=== PATIENT | female | born 1935 | race Caucasian/White ===

== ENCOUNTER 2018-06-24 22:27 | Observation (INO) ==
[2018-06-24 23:03] LABS: Baso # (Auto) 0.1 th/mm3 (0.0-0.2); Baso % (Auto) 0.7 % (0.0-2.0); Eos # (Auto) 0.4 th/mm3 (0.0-0.4); Eos % (Auto) 4.1 % (0.0-4.0); Hematocrit 39.2 % (35.0-46.0); Hemoglobin 13.5 gm/dL (11.6-15.3); Lymph # (Auto) 2.1 th/mm3 (1.0-4.8); Lymph % (Auto) 24.2 % (9.0-44.0); Mean Corpuscular HGB Conc 34.5 % (32.0-36.0); Mean Corpuscular Hemoglobin 32.6 pg (27.0-34.0); Mean Corpuscular Volume 94.4 fL (80.0-100.0); Mean Platelet Volume 7.4 fL (7.0-11.0); Mono # (Auto) 1.1 th/mm3 (0.0-0.9); Mono % (Auto) 12.5 % (0.0-8.0); Neut # (Auto) 5.1 th/mm3 (1.8-7.7); Neut % (Auto) 58.5 % (16.0-70.0); Platelet Count 252 th/mm3 (150-450); Red Blood Count 4.15 mil/mm3 (4.00-5.30); Red Cell Distribution Width 13.5 % (11.6-17.2); White Blood Count 8.8 th/mm3 (4.0-11.0)
--- NOTE | 2018-06-24 23:26 | XR ---
EXAM DATE: 06/24/2018 11:15 PM EST AGE/SEX: 83 years / Female INDICATIONS: Palpitations, shortness of breath. CLINICAL DATA: This is the patient's initial encounter. Patient reports that signs and symptoms have been present for 1 day and indicates a pain score of 0/10. MEDICAL/SURGICAL HISTORY: Hypertension. Carcinoma, lung. Myocardial infarction. COPD. Coron ana artery stent. COMPARISON: [facility], CHEST 1V SINGLE AP, 06/22/2018. [facility], XR CHEST PA AND LAT, 05/27/2016. [facility], FL UPPER GI SERIES W/ AIR AND KUB, 09/27/2017. . FINDINGS: Portable AP view of the chest demonstrates cardiac silhouette size at the upper limits for normal wit h calcification of the aorta. Air-containing retrocardiac mass represents a hiatal hernia. No pleural effusion or pneumothorax is identified. There is questionable mild airspace opacity in the left uppe r lobe. Bones and soft tissues have a stable appearance with old left rib fractures and right rib jennifer nges suggesting prior thoracotomy. CONCLUSION: 1. Possible mild airspace opacity in the left upper lobe. 2. Stable large hiatal hernia. Electronically signed by: Jordy Rodriguez MD Board Certified Radiologist 06/24/2018 11:25 PM EST
[2018-06-24 23:27] LABS: Alanine Aminotransferase 22 U/L (10-53); Albumin 3.2 g/dL (3.4-5.0); Alkaline Phosphatase 86 U/L (45-117); Anion Gap 4 meq/L (5-15); Aspartate Aminotransferase 19 U/L (15-37); Blood Urea Nitrogen 19 mg/dL (7-18); Calcium 8.1 mg/dL (8.5-10.1); Carbon Dioxide 25.6 meq/L (21.0-32.0); Chloride 111 meq/L (98-107); Glomerular Filtration Rate 84 mL/min (>89); Glucose,Random 108 mg/dL (74-106); Sodium 141 meq/L (136-145); Total Protein 7.2 g/dL (6.4-8.2)
--- NOTE | 2018-06-24 23:32 | ED ---
HPI General Chief Complaint: Arrhythmia / Palpitations Stated Complaint: Chest Pain Time Seen by Provider: 06/24/18 22:45 Source: patient and EMS Mode of arrival: EMS Limitations: no limitations History of Present Illness HPI narrative: 83-year-old female came to the emergency room with history of sudden onset of palpitation that started an hour prior to coming to the emergency room. Patient has history of atrial fibrillation. Patient was in the emergency room 2 days back with the same complaint and rapid A. fib. When EMS arrived patient had a heart rate in 140s. Patient was given 20 mg of IV Cardizem by EMS and upon arrival heart rate was down to the 90s. Patient says that she took an extra dose of her metoprolol as well before EMS came in. Her acoustic intelligence specialist is Dr. Brown. This is her third episode of palpitation and A. fib with RVR in past 1 month. Patient does not have a pacemaker and never had an ablation. She is on Eliquis for her A. fib. Patient says currently she feels tired and weak. She had some associated shortness of breath and chest heaviness which seems to have gone away currently. Blood pressure was within acceptable range. Patient does not require oxygen at home. Pressure was all over her chest. Related Data Home Medications Medication Instructions Recorded Confirmed albuterol sulfate [Ventolin HFA] 1 puff INHALATION Q6H PRN 06/22/18 06/24/18 amlodipine [Norvasc] 2.5 mg PO DAILY 06/22/18 06/24/18 amlodipine [Norvasc] 2.5 mg PO DAILY 06/22/18 06/24/18 apixaban [Eliquis] 5 mg PO BID 06/22/18 06/24/18 atorvastatin 40 mg PO DAILY 06/22/18 06/24/18 fluticasone-vilanterol [Breo 1 inh INHALATION DAILY 06/22/18 06/24/18 Ellipta] furosemide [Lasix] 20 mg PO DAILY 06/22/18 06/24/18 losartan 50 mg PO DAILY 06/22/18 06/24/18 metoprolol tartrate 25 mg PO BID 06/22/18 06/24/18 multivitamin 1 tab PO DAILY 06/22/18 06/24/18 pantoprazole 20 mg PO DAILY 06/22/18 06/24/18 sucralfate [Carafate] 1 g PO HS 06/22/18 06/24/18 Allergies Allergy/AdvReac Type Severity Reaction Status Date / Time diatrizoate meglumine Allergy Severe Hives Verified 06/22/18 16:16 doxycycline Allergy Severe Hives Verified 06/22/18 16:16 erythromycin base Allergy Severe Hives Verified 06/22/18 16:16 gadobenic acid Allergy Severe Hives Verified 06/22/18 16:16 gadodiamide Allergy Severe Hives Verified 06/22/18 16:16 gadoteridol Allergy Severe Hives Verified 06/22/18 16:16 iodixanol Allergy Severe Hives Verified 06/22/18 16:16 iohexol Allergy Severe Hives Verified 06/22/18 16:16 minocycline Allergy Severe Hives Verified 06/22/18 16:16 penicillin G Allergy Severe Hives Verified 06/22/18 16:16 tigecycline Allergy Severe Hives Verified 06/22/18 16:16 morphine Allergy Intermediate RESP Verified 06/22/18 16:16 FAILURE sulfamethoxazole AdvReac Mild NAUSEA Verified 06/22/18 16:16 VOMITING trimethoprim AdvReac Mild NAUSEA Verified 06/22/18 16:16 VOMITING Review of Systems ROS: all other systems reviewed are negative [facility] Medical History Medical History A-fib (Acute) Acid reflux disease (Acute) HBP (high blood pressure) (Acute) Hiatal hernia (Acute) History of hysterectomy (Acute) Surgical History Surgical History History of bladder repair surgery (Acute) History of heart artery stent (Acute) Social History Social History Substance History: No History of Abuse Second Hand Smoke Exposure: No Smoking Status: Former smoker Tobacco Type: Cigarettes How Often Do You Have a Drink Containing Alcohol: Never Recent Travel in [facility] within the Last 8 Weeks: No Recent Out of Country Travel within the Last 8 Weeks: No Immunization History Tetanus Immunization: Unsure Exam Narrative Exam Narrative: GENERAL: Awake, alert, elderly, moderate distress SKIN: Focused skin assessment warm/dry. HEAD: Atraumatic. Normocephalic. EYES: Pupils equal and round. No scleral icterus. No injection or drainage. ENT: No nasal bleeding or discharge. Mucous membranes pink and moist. NECK: Trachea midline. No JVD. CARDIOVASCULAR: Regular rate and rhythm. No murmur appreciated. RESPIRATORY: No accessory muscle use. Faint end expiratory wheeze GASTROINTESTINAL: Abdomen soft, non-tender, nondistended. Hepatic and splenic margins not palpable. MUSCULOSKELETAL: No obvious deformities. No clubbing. No cyanosis. Bilateral pedal edema NEUROLOGICAL: Awake and alert. No obvious cranial nerve deficits. Motor grossly within normal limits. Normal speech. PSYCHIATRIC: Appropriate mood and affect; insight and judgment normal. Course Initial Documented Vital Signs Temperature 98.3 F 06/24/18 22:35 Pulse Rate 75 06/24/18 22:35 Respiratory Rate 24 06/24/18 22:35 Blood Pressure 126/61 06/24/18 22:35 Pulse Oximetry 94 L 06/24/18 22:35 Last Documented Vital Signs Temperature 98.3 F 06/24/18 22:35 Pulse Rate 72 06/24/18 22:45 Respiratory Rate 24 06/24/18 22:35 Blood Pressure 126/61 06/24/18 22:35 Pulse Oximetry 97 06/24/18 22:45 Medical Decision Making MDM Narrative Medical decision making narrative: 11:32 PM blood test results are back and within acceptable limits. Patient is getting IV Lasix. I put a call out for Dr. Brown and waiting to discuss with him. I am little concerned that this is second time within 2 days of patient coming back for the same symptoms. I would prefer to admit her unless Dr. Brown recommends discharge and a close follow-up in his office. Medical Screen Exam Complete: Yes Emergency Medical Condition: Yes Lab Data Result diagrams: 06/24/18 22:56 06/24/18 22:56 Lab Results 06/24/18 06/24/18 06/24/18 Range/Units 22:56 22:56 22:56 WBC 8.8 (4.0-11.0) th/mm3 RBC 4.15 (4.00-5.30) mil/mm3 Hgb 13.5 (11.6-15.3) gm/dL Hct 39.2 (35.0-46.0) % MCV 94.4 (80.0-100.0) fL MCH 32.6 (27.0-34.0) pg MCHC 34.5 (32.0-36.0) % RDW 13.5 (11.6-17.2) % Plt Count 252 (150-450) th/mm3 MPV 7.4 (7.0-11.0) fL Neut % (Auto) 58.5 (16.0-70.0) % Lymph % (Auto) 24.2 (9.0-44.0) % Levy % (Auto) 12.5 H (0.0-8.0) % Eos % (Auto) 4.1 H (0.0-4.0) % Baso % (Auto) 0.7 (0.0-2.0) % Neut # (Auto) 5.1 (1.8-7.7) th/mm3 Lymph # (Auto) 2.1 (1.0-4.8) th/mm3 Levy # (Auto) 1.1 H (0.0-0.9) th/mm3 Eos # (Auto) 0.4 (0.0-0.4) th/mm3 Baso # (Auto) 0.1 (0.0-0.2) th/mm3 WBC Differential . Differential Comment Auto diff final Sodium 141 (136-145) meq/L Potassium 4.0 (3.5-5.1) meq/L Chloride 111 H (98-107) meq/L Carbon Dioxide 25.6 (21.0-32.0) meq/L Anion Gap 4 L (5-15) meq/L BUN 19 H (7-18) mg/dL Creatinine 0.67 (0.50-1.00) mg/dL Estimated GFR 84 L (>89) mL/min Random Glucose 108 H (74-106) mg/dL Calcium 8.1 L (8.5-10.1) mg/dL Total Bilirubin 0.4 (0.2-1.0) mg/dL AST 19 (15-37) U/L ALT 22 (10-53) U/L Alkaline Phosphatase 86 (45-117) U/L Troponin I Less than 0.02 L (0.02-0.05) ng/mL B-Natriuretic Peptide 196 H (0-100) pg/mL Total Protein 7.2 D (6.4-8.2) g/dL Albumin 3.2 L (3.4-5.0) g/dL Imaging Data Radiologist's impression: Chest X-Ray 06/24/18 22:45 CONCLUSION: 1. Possible mild airspace opacity in the left upper lobe. 2. Stable large hiatal hernia. ECG Data Attestation: I personally reviewed and interpreted this ECG as follows: Interpretation: Twelve-lead EKG was reviewed by me. Atrial fibrillation, left axis deviation, poor R wave progression. Heart rate of 87 bpm. Discharge Plan Discharge Disposition Patient Disposition: ED Admit(ED Internal Use Only) Physicians Team ED Provider: Stanley Sal Primary Care Provider: Kodi Hogan Rxs /Orders / Referrals /Forms Prescriptions: No Action multivitamin Tablet 1 tab PO DAILY RF: 0 losartan 50 mg Tablet 50 mg PO DAILY RF: 0 atorvastatin 40 mg Tablet 40 mg PO DAILY RF: 0 sucralfate [Carafate] 1 gram Tablet 1 g PO HS RF: 0 amlodipine [Norvasc] 2.5 mg Tablet 2.5 mg PO DAILY RF: 0 amlodipine [Norvasc] 2.5 mg Tablet 2.5 mg PO DAILY RF: 0 pantoprazole 20 mg Tablet,Delayed Release (Dr/Ec) 20 mg PO DAILY RF: 0 furosemide [Lasix] 20 mg Tablet 20 mg PO DAILY RF: 0 albuterol sulfate [Ventolin HFA] 90 mcg/actuation Hfa Aerosol Inhaler 1 puff INHALATION Q6H PRN (Reason: Shortness Of Breath) RF: 0 metoprolol tartrate 25 mg Tablet 25 mg PO BID RF: 0 apixaban [Eliquis] 5 mg Tablet 5 mg PO BID RF: 0 fluticasone-vilanterol [Breo Ellipta] 100-25 mcg/dose Blister With Device 1 inh INHALATION DAILY RF: 0 Status ED Status: With Doctor
[2018-06-25] MEDS ORDERED: Bisacodyl 10 MG Supp RECTAL PRN (02:50)
[2018-06-25] MEDS ORDERED: Acetaminophen 325 MG Tablet PO PRN (02:50)
--- NOTE | 2018-06-25 08:36 | P.HPIM ---
History of Present Illness Primary Care Physician: Kodi Hogan MD Chief Complaint: Palpitations History of Present Illness: Ms. Christensen is a pleasant 83 y/o WF with A. fib/RVR, CAD, CHF, COPD, GERD, HTN, and hx of lung cancer s/p right lobectomy in 2006. Pt presented to the ED at [facility] on 06/24/18 with palpitations. She reports that over the last 7-10 days she has been having increased frequency of episodes of palpitations and feeling like her heart was "pounding out of her chest." She was seen in the ED on with similar complaints and was given 10 mg of Cardizem IV x1 and HR improved into the 70's and stabilized and she was discharged home. Yesterday she felt the palpitations and heart pounding again in the evening and this prompted to he push her Medical Alert to call EMS. According to the ED documentation when EMS arrived the patient had a heart rate in 140s. Patient was given 20 mg of IV Cardizem by EMS and upon arrival to the ED her heart rate was down to the 90s. She was also give a dose of IV Lasix in the ED. Pt states that she doesn't normally take Lasix every day, she only uses it as needed at home. On telemetry pt has periodically been in A. fib RVR and appears this is mostly with activity or attempted ambulation with getting up to the bedside commode and then the HR improves back to the 80's this morning. Pt states that she is chronically SOB with activity and over the last 7-10 days she has felt more SOB but denies any increase in baseline LE edema. She denies any chest pain , dizziness, weakness, abd pain, nausea/vomiting. Past Medical Hx: A. fib/RVR CAD CHF, reported hx of diastolic dysfunction. COPD GERD HTN Hx of lung cancer Hx of PE in 2002 Chronic lymphedema Rheumatic mitral stenosis 2D echo (09/05/2016) - Estimated EF 55-60% - Mild mitral regurg. Mild mitral stenosis - Moderate tricuspid regurg - RVSP is 45mmHg Past Surgical Hx: PTCA in 2004 Right lobectomy Cataract surgery Appendectomy Hysterectomy Family Hx: Noncontributory Social Hx: Denies any alcohol, tobacco or illicit drug use Diagnosis (1) Atrial fibrillation with RVR: (2) HTN (hypertension): (3) CAD (coronary artery disease): (4) COPD (chronic obstructive pulmonary disease): Medications and Allergies Allergies Allergy/AdvReac Type Severity Reaction Status Date / Time diatrizoate meglumine Allergy Severe Hives Verified 06/22/18 16:16 doxycycline Allergy Severe Hives Verified 06/22/18 16:16 erythromycin base Allergy Severe Hives Verified 06/22/18 16:16 gadobenic acid Allergy Severe Hives Verified 06/22/18 16:16 gadodiamide Allergy Severe Hives Verified 06/22/18 16:16 gadoteridol Allergy Severe Hives Verified 06/22/18 16:16 iodixanol Allergy Severe Hives Verified 06/22/18 16:16 iohexol Allergy Severe Hives Verified 06/22/18 16:16 minocycline Allergy Severe Hives Verified 06/22/18 16:16 penicillin G Allergy Severe Hives Verified 06/22/18 16:16 tigecycline Allergy Severe Hives Verified 06/22/18 16:16 morphine Allergy Intermediate RESP Verified 06/22/18 16:16 FAILURE sulfamethoxazole AdvReac Mild NAUSEA Verified 06/22/18 16:16 VOMITING trimethoprim AdvReac Mild NAUSEA Verified 06/22/18 16:16 VOMITING Home Medications Medication Instructions Recorded Confirmed Type albuterol sulfate [Ventolin HFA] 1 puff INHALATION Q6H PRN 06/22/18 06/24/18 History apixaban [Eliquis] 5 mg PO BID 06/22/18 06/24/18 History atorvastatin 40 mg PO DAILY 06/22/18 06/24/18 History fluticasone-vilanterol [Breo 1 inh INHALATION DAILY 06/22/18 06/24/18 History Ellipta] multivitamin 1 tab PO DAILY 06/22/18 06/24/18 History pantoprazole 20 mg PO DAILY 06/22/18 06/24/18 History sucralfate [Carafate] 1 g PO HS 06/22/18 06/24/18 History Active Medications: Active Medications Acetaminophen (Tylenol) 650 mg PO Q4H PRN PRN Reason: Temp > 100.4 Al Hydroxide/Mg Hydroxide (Milk Of Magnesia Liq) 30 ml PO Q12H PRN PRN Reason: Mild Constipation Albuterol (Ventolin Hfa Inh) 1 puff INH Q6H PRN PRN Reason: Shortness Of Breath Amlodipine Besylate (Norvasc) 2.5 mg PO DAILY [facility] Apixaban (Eliquis) 5 mg PO BID [facility] Atorvastatin Calcium (Lipitor) 40 mg PO DAILY JAS Bisacodyl (Dulcolax Supp) 10 mg RECTAL DAILY PRN PRN Reason: SEVERE CONSITIPATION Fluticasone/Vilanterol (Breo Ellipta 100/25 Mcg Inh) 1 puff INH DAILY [facility] Furosemide (Lasix) 20 mg PO DAILY [facility] Lactulose (Lactulose Liq) 30 ml PO DAILY PRN PRN Reason: SEVERE CONSITIPATION Losartan Potassium (Cozaar) 50 mg PO DAILY [facility] Metoprolol Tartrate (Lopressor) 50 mg PO BID [facility] Multivitamins (Theragran) 1 tab PO DAILY [facility] Ondansetron HCl (Zofran Inj) 4 mg IV.PUSH Q6H PRN PRN Reason: NAUSEA OR VOMITING Pantoprazole Sodium (Protonix) 20 mg PO DAILY [facility] Sennosides (Senokot) 17.2 mg PO Q12H PRN PRN Reason: Moderate Constipation Sodium Chloride (Ns Flush) 2 ml IV.FLUSH BID [facility] Sodium Chloride (Ns Flush) 2 ml IV.FLUSH PRN PRN PRN Reason: FLUSH AFTER USING IV ACCESS Sucralfate (Carafate) 1 gm PO HS [facility] Physical Exam Vital signs: Last Vital Signs Temp 97.5 F L 06/25/18 08:00 Pulse 105 H 06/25/18 08:00 Resp 18 06/25/18 08:00 BP 115/75 06/25/18 08:00 Pulse Ox 99 06/25/18 08:00 Narrative: GENERAL: NAD, AAOx3 SKIN: Warm and dry. HEENT: Atraumatic. Normocephalic. Pupils equal and round. No scleral icterus. No injection or drainage. No nasal bleeding or discharge. Mucous membranes pink and moist. NECK: Trachea midline. No JVD. CARDIO: Irregularly irregular, rate controlled RESP: Clear to auscultation bilaterally. ABD: +BS, soft, non-tender, nondistended. EXT: Bilateral LE/pedal edema. No obvious deformities. NEURO: Awake and alert. No obvious cranial nerve deficits. Motor grossly within normal limits. Five out of 5 muscle strength in the arms and legs. Normal speech. PSYCH: Appropriate mood and affect; insight and judgment normal. Results Labs CBC & Chem 7: 06/26/18 07:17 06/26/18 07:17 Imaging Chest X-Ray 06/24/18 22:45 CONCLUSION: 1. Possible mild airspace opacity in the left upper lobe. 2. Stable large hiatal hernia. Caprini VTE Risk Assessment Caprini VTE Risk Assessment: Moderate/High Risk (score >= 2) Caprini Risk Assessment Model: Point Value = 1 Point Value = 2 Point Value = 3 Point Value = 5 Age 41-60 Minor surgery BMI > 25 kg/m2 Swollen legs Varicose veins or History of unexplained or recurrent spontaneous Oral contraceptives or hormone replacement Sepsis (< 1 month) Serious lung disease, including pneumonia (< 1 month) Abnormal pulmonary function Acute myocardial infarction Congestive heart failure (< 1 month) History of inflammatory bowel disease Medical patient at bed rest Age 61-74 Arthroscopic surgery Major open surgery (> 45 min) Laparoscopic surgery (> 45 min) Malignancy Confined to bed (> 72 hours) Immobilizing plaster cast Central venous access Age >= 75 History of VTE Family history of VTE Factor V Leiden Prothrombin [id number] Lupus anticoagulant Anticardiolipin antibodies Elevated serum homocysteine Heparin-induced thrombocytopenia Other congenital or acquired thrombophilia Stroke (< 1 month) Elective arthroplasty Hip, pelvis, or leg fracture Acute spinal cord injury (< 1 month) Prophylaxis Regimen: Total Risk Factor Score Risk Level Prophylaxis Regimen 0-1 Low Early ambulation 2 Moderate Order ONE of the following: *Sequential Compression Device (SCD) *Heparin 5000 units SQ BID 3-4 Higher Order ONE of the following medications: *Heparin 5000 units SQ TID *Enoxaparin/Lovenox 40 mg SQ daily (WT < 150 kg, CrCl > 30 mL/min) *Enoxaparin/Lovenox 30 mg SQ daily (WT < 150 kg, CrCl > 10-29 mL/min) *Enoxaparin/Lovenox 30 mg SQ BID (WT < 150 kg, CrCl > 30 mL/min) AND/OR *Sequential Compression Device (SCD) 5 or more Highest Order ONE of the following medications: *Heparin 5000 units SQ TID (Preferred with Epidurals) *Enoxaparin/Lovenox 40 mg SQ daily (WT < 150 kg, CrCl > 30 mL/min) *Enoxaparin/Lovenox 30 mg SQ daily (WT < 150 kg, CrCl > 10-29 mL/min) *Enoxaparin/Lovenox 30 mg SQ BID (WT < 150 kg, CrCl > 30 mL/min) AND *Sequential Compression Device (SCD) Assessment and Plan Assessment (1) Atrial fibrillation with RVR: Code(s): I48.91 - Unspecified atrial fibrillation Status: Acute (2) HTN (hypertension): Code(s): I10 - Essential (primary) hypertension Status: Chronic (3) CAD (coronary artery disease): Code(s): I25.10 - Atherosclerotic heart disease of [place] coronary artery without angina pectoris Status: Chronic (4) COPD (chronic obstructive pulmonary disease): Code(s): J44.9 - Chronic obstructive pulmonary disease, unspecified Status: Chronic Plan A. fib RVR - Pt is an 83 y/o WF with A. fib/RVR, CAD, CHF, COPD, GERD, HTN, and hx of lung cancer s/p right lobectomy in 2006. - Pt presented to the ED at [facility] on 06/24/18 with palpitations. She reports that over the last 7-10 days she has been having increased frequency of episodes of palpitations and feeling like her heart was "pounding out of her chest." She was seen in the ED on 06/22/18 with similar complaints and was given 10 mg of Cardizem IV x1 and HR improved into the 70's and stabilized and she was discharged home. Yesterday she felt the palpitations and heart pounding again in the evening and this prompted to he push her Medical Alert to call EMS. According to the ED documentation when EMS arrived the patient had a heart rate in 140s. - Patient was given 20 mg of IV Cardizem by EMS and upon arrival to the ED her heart rate was down to the 90s. She was also give a dose of IV Lasix in the ED. - Pt has continued to have some intermittent RVR on telemetry with activity, getting up to bedside commode, with some associated SOB. - Her Metoprolol is increased to 50mg BID - BP has been low normal so we will hold her Norvasc and put parameters on her Losartan. - Pt does not appear to have any adventitious lung sounds on examination this morning so we will hold her Lasix (she does not normally take Lasix daily) - Monitor HR on telemetry and BP increased dose of Metoprolol - Pt follows with Dr. Brown as an outpt - Check 2D echo - Supportive care - Cont. Eliquis HTN - Metoprolol is increased to 50mg BID - BP has been low normal so we will hold her Norvasc and put parameters on her Losartan. - Monitor COPD - Cont. home meds - Dutrinh PRN Attending Attestation Patient examined. Assessment and plan formulated with Mary Deleon PA-C. I agree with the above. pt with afib/rvr. progressive sob which might be related to uncontrolled afib. hx lung ca and right upper lobectomy. f/u echo, pft bedside, ct chest noncontrast.
[2018-06-25] MEDS ORDERED: amLODIPine 5 MG Tablet PO SCH ×2 (09:00→21:00)
[2018-06-25] MEDS ORDERED: Furosemide 20 MG Tablet PO SCH (09:00)
[2018-06-25] MEDS: Pantoprazole Sodium 20 MG DR Tablet PO SCH (09:16)
[2018-06-25] MEDS: Metoprolol Tartrate 50 MG Tablet PO SCH ×2 (09:16→20:27)
--- NOTE | 2018-06-25 11:31 | ECG ---
Date Performed: 06/24/2018 Time Performed: 22:39:49 PTAGE: 83 years EKG: ATRIAL FIBRILLATION POSSIBLE ANTERIOR MYOCARDIAL INFARCTION ABNORMAL RHYTHM ECG Since the PREVIOUS TRACING , no significant change noted PREVIOUS TRACIN06/22/2018 16.18 DOCTOR: Brian Honeycutt Interpretating Date/Time 06/25/2018 11:31:01
[2018-06-25 13:03] LABS: Calcium 8.5 mg/dL (8.5-10.1); Potassium 3.7 meq/L (3.5-5.1)
--- NOTE | 2018-06-25 16:56 | CT ---
EXAM DATE: 06/25/2018 4:32 PM EST AGE/SEX: 83 years / Female INDICATIONS: Short of breath CLINICAL DATA: This is the patient's initial encounter. Patient reports that signs and symptoms have been present for 3 days and indicates a pain score of 3/10. MEDICAL/SURGICAL HISTORY: Hypertension. Atrial Fibrillation, Hiatal Hernia Hysterectomy. Heart Art coy Stent, Bladder Repair RADIATION DOSE: 10.37 CTDI (mGy) COMPARISON: No prior exams available for comparison. TECHNIQUE: Multiple contiguous axial images were obtained through the chest without contrast. Image s were obtained in suspended respiration using multiple row detector helical technique. Using automa marcelino exposure control and adjustment of the mA and/or kV according to patient size, radiation dose was kept as low as reasonably achievable to obtain optimal diagnostic quality images. DICOM format imag e data is available electronically for review and comparison. FINDINGS: Lungs: The lungs are symmetrically aerated. There is a 2.4 x 2.9 cm soft tissue density seen just po sterior and abutting up against the distal aortic arch/proximal descending thoracic aorta in the medi al aspect of the left upper lung lungs are otherwise clear.. Mediastinum: There is good visualization of the great vessels of the middle mediastinum. No evidenc e of mediastinal or hilar adenopathy/mass. Atherosclerotic calcification of the coronary arteries. He art size is prominent. Pleurae: No evidence of focal thickening or pleural effusion. Axillae: Unremarkable. Bony Structures: Unremarkable. Miscellaneous: The examination was extended to include the upper abdomen, and both adrenal glands ar e normal in size and configuration. There appears to be a very large hiatal hernia with an associated organoaxial gastric volvulus. Punctate, nonobstructing calculus in the midpole collecting system of the left kidney. CONCLUSION: 1. There is a 2.4 x 2.9 cm soft tissue density posterior and abutting up against the distal aortic a rch/proximal descending thoracic aorta. On the sagittal reconstructions, I do believe that there is a tissue plane between the aorta and the nodule and therefore, this probably does not represent a sacc ular aneurysm. Both neoplastic and infectious processes should be considered. Conservatively, I woul d recommend a repeat CT scan of the chest in 3 months preferably with contrast to ensure stability/re solution. Alternatively, outpatient PET imaging could be performed to evaluate metabolic activity of this lesion. 2. Lungs are otherwise clear. No acute infiltrate. 3. Atherosclerotic calcification of the coronary arteries. 4. Very large hiatal hernia with most of the stomach in the lower chest. This appears to be associat ed with organoaxial gastric volvulus. 5. Nonobstructing, punctate 2 to 3 mm renal stone in the left mid pole collecting system. Electronically signed by: Hector Todd MD Board Certified Radiologist 06/25/2018 4:55 PM EST
[2018-06-25] MEDS: Acetaminophen 325 MG Tablet PO PRN (20:28)
[2018-06-25] MEDS: Sucralfate 1 GM Tablet PO SCH (21:51)
[2018-06-26] MEDS: Acetaminophen 325 MG Tablet PO PRN (06:18)
--- NOTE | 2018-06-26 08:07 | P.PNIM ---
Subjective Interval history: Pt feeling well this morning. She slept well last night HR in the 50-60's this morning on telemetry HR did go as low as 43 overnight. Physical Exam Vital signs: Last Vital Signs Temp 98.2 F 06/26/18 04:00 Pulse 59 L 06/26/18 04:00 Resp 18 06/26/18 04:00 BP 129/61 06/26/18 04:00 Pulse Ox 95 06/26/18 04:00 Narrative: GENERAL: NAD, AAOx3 CARDIO: Regularly,bradycardic RESP: CTA bilaterally. ABD: +BS, soft, non-tender, nondistended. EXT: Bilateral LE/pedal edema. No obvious deformities. Results Labs CBC & Chem 7: 06/26/18 07:17 06/26/18 07:17 Imaging Chest X-Ray 06/24/18 22:45 CONCLUSION: 1. Possible mild airspace opacity in the left upper lobe. 2. Stable large hiatal hernia. Chest CT 06/25/18 00:00 CONCLUSION: 1. There is a 2.4 x 2.9 cm soft tissue density posterior and abutting up against the distal aortic arch/proximal descending thoracic aorta. On the sagittal reconstructions, I do believe that there is a tissue plane between the aorta and the nodule and therefore, this probably does not represent a saccular aneurysm. Both neoplastic and infectious processes should be considered. Conservatively, I would recommend a repeat CT scan of the chest in 3 months preferably with contrast to ensure stability/resolution. Alternatively, outpatient PET imaging could be performed to evaluate metabolic activity of this lesion. 2. Lungs are otherwise clear. No acute infiltrate. 3. Atherosclerotic calcification of the coronary arteries. 4. Very large hiatal hernia with most of the stomach in the lower chest. 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 5. Nonobstructing, punctate 2 to 3 mm renal stone in the left mid pole collecting system. Assessment and Plan Assessment (1) Atrial fibrillation with RVR: Code(s): I48.91 - Unspecified atrial fibrillation Status: Acute (2) HTN (hypertension): Code(s): I10 - Essential (primary) hypertension Status: Chronic (3) CAD (coronary artery disease): Code(s): I25.10 - Atherosclerotic heart disease of [place] coronary artery without angina pectoris Status: Chronic (4) COPD (chronic obstructive pulmonary disease): Code(s): J44.9 - Chronic obstructive pulmonary disease, unspecified Status: Chronic Plan A. fib RVR - Pt is an 83 y/o WF with A. fib/RVR, CAD, CHF, COPD, GERD, HTN, and hx of lung cancer s/p right lobectomy in 2006. - Pt presented to the ED at [facility] on 06/24/18 with palpitations. She reports that over the last 7-10 days she has been having increased frequency of episodes of palpitations and feeling like her heart was "pounding out of her chest." She was seen in the ED on 06/22/18 with similar complaints and was given 10 mg of Cardizem IV x1 and HR improved into the 70's and stabilized and she was discharged home. Yesterday she felt the palpitations and heart pounding again in the evening and this prompted to he push her Medical Alert to call EMS. According to the ED documentation when EMS arrived the patient had a heart rate in 140s. - Patient was given 20 mg of IV Cardizem by EMS and upon arrival to the ED her heart rate was down to the 90s. She was also give a dose of IV Lasix in the ED. - Pt was having some intermittent RVR on telemetry with activity on 06/25/18, getting up to bedside commode, with some associated SOB. - Her Metoprolol is increased to 50mg BID - HR is better controlled on higher dose of Metoprolol but HR was going low overnight into the 40's. Change evening dose back to 25mg - BP has been low normal so we will hold her Norvasc and Losartan. - Pt does not appear to have any adventitious lung sounds on examination this morning so we will hold her Lasix (she does not normally take Lasix daily) - Pt follows with Dr. Brown as an outpt - Check 2D echo is ordered - Supportive care - Cont. Eliquis HTN - Metoprolol is increased to 50mg BID - BP has been low normal so we will hold her Norvasc and put parameters on her Losartan. - Monitor COPD Hx of lung cancer SOB, chronic but worsening more recently - Cont. home meds - Duonebs PRN - Bedside PFTs ordered - Chest CT (06/25/17) --> 1. There is a 2.4 x 2.9 cm soft tissue density posterior and abutting up against the distal aortic arch/proximal descending thoracic aorta. On the sagittal reconstructions, I do believe that there is a tissue plane between the aorta and the nodule and therefore, this probably does not represent a saccular aneurysm. Both neoplastic and infectious processes should be considered. Conservatively, I would recommend a repeat CT scan of the chest in 3 months preferably with contrast to ensure stability/resolution. Alternatively, outpatient PET imaging could be performed to evaluate metabolic activity of this lesion. 2. Lungs are otherwise clear. No acute infiltrate. 3. Atherosclerotic calcification of the coronary arteries. 4. Very large hiatal hernia with most of the stomach in the lower chest. 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 5. Nonobstructing, punctate 2 to 3 mm renal stone in the left mid pole collecting system. - Pt will need to followup with her PCP outpt for ordering a PET scan given her hx of lung cancer - She should followup with her Fuselage Framer, Dr. Purcell as well.
[2018-06-26 08:46] LABS: Baso # (Auto) 0.1 th/mm3 (0.0-0.2); Baso % (Auto) 0.8 % (0.0-2.0); Eos # (Auto) 0.3 th/mm3 (0.0-0.4); Eos % (Auto) 3.8 % (0.0-4.0); Hematocrit 38.5 % (35.0-46.0); Hemoglobin 13.3 gm/dL (11.6-15.3); Lymph # (Auto) 2.2 th/mm3 (1.0-4.8); Lymph % (Auto) 26.9 % (9.0-44.0); Mean Corpuscular HGB Conc 34.6 % (32.0-36.0); Mean Corpuscular Volume 95.5 fL (80.0-100.0); Mean Platelet Volume 7.5 fL (7.0-11.0); Mono % (Auto) 12.1 % (0.0-8.0); Neut # (Auto) 4.6 th/mm3 (1.8-7.7); Neut % (Auto) 56.4 % (16.0-70.0); Platelet Count 222 th/mm3 (150-450); Red Blood Count 4.03 mil/mm3 (4.00-5.30); Red Cell Distribution Width 13.8 % (11.6-17.2); White Blood Count 8.1 th/mm3 (4.0-11.0)
[2018-06-26] MEDS: Pantoprazole Sodium 20 MG DR Tablet PO SCH (08:56)
[2018-06-26 09:06] LABS: Calcium 8.8 mg/dL (8.5-10.1); Carbon Dioxide 27.7 meq/L (21.0-32.0); Potassium 3.8 meq/L (3.5-5.1)
[2018-06-26] MEDS: Metoprolol Tartrate 50 MG Tablet PO SCH ×2 (10:31→11:02)
--- NOTE | 2018-06-26 13:15 | ECHRPT ---
Indication: ATRIAL FIB/FLUTTER CONCLUSIONS Normal left ventricular size. Wall thickness is measured at the upper limits of normal. The left ventricular systolic function is normal with an estimated ejection fraction of 55%. Moderate thickening of the mitral valve leaflets. [id number] mitral valve regurgitation. Mitral annular calcification is present. The estimated pulmonary arterial pressure is 14 mmHg. BP: / HR: Rhythm: MEASUREMENTS (Male / Female) Normal Values Technical Quality: 2D ECHO LV Diastolic Diameter PLAX 4.0 cm 4.2 - 5.9 / 3.9 - 5.3 cm LV Systolic Diameter PLAX 3.1 cm IVS Diastolic Thickness 1.1 cm 0.6 - 1.0 / 0.6 - 0.9 cm LVPW Diastolic Thickness 1.0 cm 0.6 - 1.0 / 0.6 - 0.9 cm LV Relative Wall Thickness 0.5 RV Internal Dim ED PLAX 2.4 cm LVOT Diameter 1.8 cm Aortic Root Diameter 2.5 cm M-MODE AV Cusp Separation MM 1.6 cm DOPPLER AV Peak Velocity 151.0 cm/s AV Peak Gradient 9.1 mmHg LVOT Peak Velocity 84.9 cm/s LVOT Peak Gradient 2.9 mmHg AV Area Cont Eq pk 1.4 cm MV Peak Velocity 160.0 cm/s MV Peak Gradient 10.2 mmHg MV Mean Velocity 86.1 cm/s MV Mean Gradient 3.0 mmHg Mitral E Point Velocity 137.0 cm/s Mitral A Point Velocity 132.0 cm/s Mitral E to A Ratio 1.0 LV E' Lateral Velocity 6.8 cm/s Mitral E to LV E' Lateral Ratio 20.1 LV E' Septal Velocity 6.8 cm/s Mitral E to LV E' Septal Ratio 20.1 TR Peak Velocity 95.0 cm/s TR Peak Gradient 3.6 mmHg Right Atrial Pressure 10.0 mmHg Pulmonary Artery Systolic Pressu 13.6 mmHg Right Ventricular Systolic Press 13.6 mmHg PV Peak Velocity 72.7 cm/s PV Peak Gradient 2.1 mmHg FINDINGS LEFT VENTRICLE Normal left ventricular size. Wall thickness is measured at the upper limits of normal. The left ventricular systolic function is normal with an estimated ejection fraction of 55%. RIGHT VENTRICLE Normal right ventricular size and systolic function. LEFT ATRIUM The left atrial size is normal. RIGHT ATRIUM The right atrial size is normal. ATRIAL SEPTUM Normal atrial septal thickness without atrial level shunting by limited color doppler interrogation. AORTA The aortic root and proximal ascending aorta are normal in size on limited imaging. MITRAL VALVE Moderate thickening of the mitral valve leaflets. [id number] mitral valve regurgitation. Mitral annular calcification is present. AORTIC VALVE Trileaflet aortic valve. No aortic valve stenosis or regurgitation. TRICUSPID VALVE The estimated pulmonary arterial pressure is 14mmHg. PULMONARY VALVE No pulmonary valve regurgitation or stenosis. VESSELS The inferior vena cava is normal in size. PERICARDIUM No pericardial effusion. Rogelio Steven MD, FACC (Electronically Signed) Final Date:26 June 2018 13:14
[2018-06-26] MEDS ORDERED: Metoprolol Tartrate 25 MG Tablet PO SCH (21:00)
[2018-06-26] MEDS: Sucralfate 1 GM Tablet PO SCH (21:31)
--- NOTE | 2018-06-26 23:23 | ECG ---
Date Performed: 06/25/2018 Time Performed: 22:25:50 PTAGE: 83 years EKG: SINUS BRADYCARDIA LEFT ATRIAL ENLARGEMENT LOW QRS VOLTAGE IN PRECORDIAL LEADS PATTERN CONSI STENT WITH PULMONARY DISEASE ABNORMAL ECG NO PREVIOUS TRACING DOCTOR: Jackie De Santiago Interpretating Date/Time 06/26/2018 23:22:29
[2018-06-27] MEDS: Acetaminophen 325 MG Tablet PO PRN (07:50)
[2018-06-27] MEDS: Pantoprazole Sodium 20 MG DR Tablet PO SCH (08:29)
[2018-06-27] MEDS ORDERED: Metoprolol Tartrate 50 MG Tablet PO SCH (09:00)
--- NOTE | 2018-06-27 09:39 | P.PNIM ---
Subjective Interval history: Pt feeling well this morning Her HR was better controlled on Metoprolol 50mg in Am and 25 in PM. She did not have any bradycardia overnight Pt is anxious for discharge. The bedside PFTs have not been performed yet. Physical Exam Vital signs: Last Vital Signs Temp 98 F 06/27/18 08:00 Pulse 59 L 06/27/18 08:00 Resp 18 06/27/18 08:00 BP 133/65 06/27/18 08:00 Pulse Ox 96 06/27/18 08:00 Narrative: GENERAL: NAD, AAOx3 CARDIO: Regularly RESP: CTA bilaterally. ABD: +BS, soft, non-tender, nondistended. EXT: Bilateral LE/pedal edema (chronic). No obvious deformities. Results Labs CBC & Chem 7: 06/26/18 07:17 06/26/18 07:17 Imaging Chest X-Ray 06/24/18 22:45 CONCLUSION: 1. Possible mild airspace opacity in the left upper lobe. 2. Stable large hiatal hernia. Chest CT 06/25/18 00:00 CONCLUSION: 1. There is a 2.4 x 2.9 cm soft tissue density posterior and abutting up against the distal aortic arch/proximal descending thoracic aorta. On the sagittal reconstructions, I do believe that there is a tissue plane between the aorta and the nodule and therefore, this probably does not represent a saccular aneurysm. Both neoplastic and infectious processes should be considered. Conservatively, I would recommend a repeat CT scan of the chest in 3 months preferably with contrast to ensure stability/resolution. Alternatively, outpatient PET imaging could be performed to evaluate metabolic activity of this lesion. 2. Lungs are otherwise clear. No acute infiltrate. 3. Atherosclerotic calcification of the coronary arteries. 4. Very large hiatal hernia with most of the stomach in the lower chest. 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 5. Nonobstructing, punctate 2 to 3 mm renal stone in the left mid pole collecting system. Assessment and Plan Assessment (1) Atrial fibrillation with RVR: Code(s): I48.91 - Unspecified atrial fibrillation Status: Acute (2) HTN (hypertension): Code(s): I10 - Essential (primary) hypertension Status: Chronic (3) CAD (coronary artery disease): Code(s): I25.10 - Atherosclerotic heart disease of [place] coronary artery without angina pectoris Status: Chronic (4) COPD (chronic obstructive pulmonary disease): Code(s): J44.9 - Chronic obstructive pulmonary disease, unspecified Status: Chronic Plan A. fib RVR - Pt is an 83 y/o WF with A. fib/RVR, CAD, CHF, COPD, GERD, HTN, and hx of lung cancer s/p right lobectomy in 2006. - Pt presented to the ED at [facility] on 06/24/18 with palpitations. She reports that over the last 7-10 days she has been having increased frequency of episodes of palpitations and feeling like her heart was "pounding out of her chest." She was seen in the ED on 06/22/18 with similar complaints and was given 10 mg of Cardizem IV x1 and HR improved into the 70's and stabilized and she was discharged home. Yesterday she felt the palpitations and heart pounding again in the evening and this prompted to he push her Medical Alert to call EMS. According to the ED documentation when EMS arrived the patient had a heart rate in 140s. - Patient was given 20 mg of IV Cardizem by EMS and upon arrival to the ED her heart rate was down to the 90s. She was also give a dose of IV Lasix in the ED. - Pt was having some intermittent RVR on telemetry with activity on 06/25/18, getting up to bedside commode, with some associated SOB. - Her Metoprolol is increased to 50mg BID - HR is better controlled on higher dose of Metoprolol but her HR was dropping into the 40's overnight on 06/26 and she was having some dizziness. - Her dose was adjusted to 50mg in AM and 25mg in PM and HR was more stable without any bradycardia overnight on 06/27 - BP was low normal on 06/26 so her Norvasc and Losartan were held - Pt does not appear to have any adventitious lung sounds on examination so we will hold her Lasix (she does not normally take Lasix daily) - Pt follows with Dr. Brown as an outpt - 2D echo (06/26/18) - Estimated ejection fraction of 55%. - Moderate thickening of the mitral valve leaflets. [id number] mitral valve regurgitation. Mitral annular calcification is present. - The estimated pulmonary arterial pressure is 14 mmHg - Supportive care - Cont. Eliquis HTN - Metoprolol is increased to 50mg in AM and 25mg in PM and pt has been maintaining adequate HR control without significant bradycardia. - BP was low normal overnight on 06/25 and in the morning on 06/26 so her Norvasc and Losartan were held - BP in the evening of 06/26 did elevate into the 170's systolic but normalized overnight. BP on 06/27 @ 0800 with SBP in the 130's - Hold Norvasc and Losartan at discharge but one or both may need to be resumed the further from this hospitalization the pt gets. She is to keep a BP log at home to present to her PCP in followup. COPD Hx of lung cancer New lung nodule SOB, chronic but worsening more recently - Cont. home meds - Duonebs PRN - Bedside PFTs ordered and are to be performed prior to discharge. - Chest CT (06/25/17) --> 1. There is a 2.4 x 2.9 cm soft tissue density posterior and abutting up against the distal aortic arch/proximal descending thoracic aorta. On the sagittal reconstructions, I do believe that there is a tissue plane between the aorta and the nodule and therefore, this probably does not represent a saccular aneurysm. Both neoplastic and infectious processes should be considered. Conservatively, I would recommend a repeat CT scan of the chest in 3 months preferably with contrast to ensure stability/resolution. Alternatively, outpatient PET imaging could be performed to evaluate metabolic activity of this lesion. 2. Lungs are otherwise clear. No acute infiltrate. 3. Atherosclerotic calcification of the coronary arteries. 4. Very large hiatal hernia with most of the stomach in the lower chest. 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 5. Nonobstructing, punctate 2 to 3 mm renal stone in the left mid pole collecting system. - Pt will need to followup with her PCP outpt for ordering a PET scan given her hx of lung cancer - She should followup with her Residential Property Consultant, Dr. Purcell as well. Progress Note: Quality VTE Deep Vein Thrombosis/Pulmonary Embolism Present on Admission: No
--- NOTE | 2018-06-27 09:54 | P.DCO ---
Diagnosis (1) Atrial fibrillation with RVR: Status: Acute (2) HTN (hypertension): Status: Chronic (3) CAD (coronary artery disease): Status: Chronic (4) COPD (chronic obstructive pulmonary disease): Status: Chronic Physical Therapy Order: Evaluate and treat Home Health Nursing Order: Nursing assessment with vital signs Case Management Consult Case Management Consult-Home Health: Yes I have seen patient Marina Molina on 06/27/18. My clinical findings support the need for the requested home health care services because: Deconditioned with increased weakness I certify that my clinical findings support that this patient is homebound because: Unsteady gait/balance
[2018-06-27 12:25] VITALS: BP 147/76; PULSE 65; RESP 20; TEMP 97.5; O2SAT 95
== END 2018-06-27 12:51 | disposition home health service (06) ==
LOC: NEDA 22:27 → NEPE 22:27 → NEPFCDU 06-25 04:21
PROVIDERS: ADMIT Hospitalist; ATTEND Hospitalist
CPT/HCPCS: 71010; 71045; 71250; 80048; 80053; 83520; 83880; 84484; 85025; 90774; 90784; 93005; 93306; 94010; 96374; 97161; 99285; C8952; G0378; G8987; G8988; J1940